=== PATIENT | female | born 1945 | race Caucasian/White ===

== ENCOUNTER 2018-01-01 11:43 | Observation (INO) | payer OTHER ==
[~2018-01-01] VITALS: Ht 152.4 cm; Wt 104.3 kg
[2018-01-01] MEDS ORDERED: KETOROLAC TROMETH 30 MG/ML 1ML VIAL IV ONE (12:15)
[2018-01-01 12:29] LABS: Urine Bacteria None Seen /hpf (None Seen)
[2018-01-01 12:33] LABS: Urine Specific Gravity 1.007 (1.001-1.035)
[2018-01-01 12:34] LABS: Urine Blood Negative /uL (Negative); Urine WBC 1 /hpf (0 - 5)
[2018-01-01 13:09] LABS: Basophils # (auto) 0.1 uL; Basophils % (auto) 0.9 % (0.0-2.0); Eosinophils # (auto) 0.1 uL; Eosinophils % (auto) 1.8 % (0.0-7.0); Hematocrit 44.2 % (36.0-46.0); Hemoglobin 14.7 g/dL (12.2-16.2); Lymphocytes # (auto) 1.6 uL; Lymphocytes % (auto) 21.6 % (10.0-50.0); Mean Corpuscular Hemoglobin 30.7 pg (28.0-32.0); Mean Corpuscular Hgb Conc. 33.2 g/dL (32.0-36.0); Mean Corpuscular Volume 92.6 fL (80.0-100.0); Monocytes # (auto) 0.8 uL; Neutrophils # (auto) 4.7 uL; Neutrophils % (auto) 64.7 % (37.0-80.0); Nucleated Red Blood Cells % 0.1 %; Platelet Count (auto) 296 10^3/uL (140-450); Red Blood Cells 4.78 10^6/uL (4.0-5.20); Red Cell Distribution Width 14.3 % (11.8-14.3); White Blood Cell 7.2 10^3/uL (4.4-10.8)
[2018-01-01 13:20] LABS: INR 0.97 (0.9-1.15); Partial Thromboplastin Time 27.8 sec (23.78-33.04); Prothrombin Time 10.4 sec (9.27-12.13)
[2018-01-01 13:29] LABS: Albumin 3.6 g/dL (3.4-5.0); BUN/Creatinine Ratio 10.2; Calcium 8.9 mg/dL (8.5-10.1); Magnesium 2.4 mg/dL (1.6-2.6); Potassium 4.1 mmol/L (3.5-5.1)
[2018-01-01 13:32] LABS: Bilirubin, Total 0.4 mg/dL (0.2-1.0); Total Protein 7.6 g/dL (6.4-8.2)
[2018-01-01 15:58] VITALS: BP 159/83
== END 2018-01-01 16:07 | disposition home or self-care (01) | DRG 392 ==
LOC: ER 11:43 → OVERFLOW 11:44 → ER 16:06
PROVIDERS: ADMIT Family Medicine; ATTEND Family Medicine
DX: R10.32 Left lower quadrant pain (principal); M47.816 Spondylosis without myelopathy or radiculopathy, lumbar region; N20.0 Calculus of kidney; Z82.49 Family history of ischemic heart disease and other diseases of the circulatory system
CPT/HCPCS: 36415; 71045; 74176; 80053; 81001; 82150; 83690; 83735; 85025; 85610; 85730; 96374; 99285; G0378; J1885

== ENCOUNTER 2018-04-04 10:43 | Emergency (ER) | payer OTHER ==
[~2018-04-04] VITALS: Ht 152.4 cm; Wt 99.8 kg
[2018-04-04] MEDS ORDERED: ASPirin 81 mg TAB PO ONE (11:00)
[2018-04-04 11:59] LABS: Hematocrit 41.6 % (36.0-46.0); Hemoglobin 14.1 g/dL (12.2-16.2); Mean Corpuscular Hemoglobin 30.6 pg (28.0-32.0); Mean Corpuscular Hgb Conc. 33.9 g/dL (32.0-36.0); Mean Corpuscular Volume 90.2 fL (80.0-100.0); Platelet Count (auto) 228 10^3/uL (140-450); Red Blood Cells 4.61 10^6/uL (4.0-5.20); Red Cell Distribution Width 14.7 % (11.8-14.3); White Blood Cell 8.4 10^3/uL (4.4-10.8)
[2018-04-04 12:07] LABS: Basophils % (manual) 0 (0.0-2.0); Blast Cells 0; Metamyelocytes % 0; Myelocytes % 0; Promyelocytes % 0; Reactive Lymphocytes 0
[2018-04-04 12:18] LABS: Albumin 3.6 g/dL (3.4-5.0); Anion Gap 8 (5-15); Blood Urea Nitrogen 16 mg/dL (7-18); Calcium 9.3 mg/dL (8.5-10.1); Carbon Dioxide 25 mmol/L (21-32); Chloride 104 mmol/L (98-107); Glucose 97 mg/dL (74-106); Magnesium 2.1 mg/dL (1.6-2.6); Potassium 3.9 mmol/L (3.5-5.1); Sodium 137 mmol/L (136-145)
[2018-04-04 12:25] LABS: Alanine Aminotransferase 82 U/L (13-56); Alkaline Phosphatase 692 U/L (45-117); Aspartate Aminotransferase 71 U/L (15-37); BUN/Creatinine Ratio 15.2; Bilirubin, Total 0.6 mg/dL (0.2-1.0); GFR Non-African American 54 mL/min; Total Protein 7.8 g/dL (6.4-8.2)
[2018-04-04 12:28] LABS: GFR African American > 60 mL/min
[2018-04-04 12:54] LABS: Band Neutrophils % (manual) 3; Eosinophils % (manual) 3 (0-7); Lymphocytes % (manual) 33 (10.0-50.0); Monocytes % (manual) 7 (0-12)
[2018-04-04] MEDS ORDERED: KETOROLAC TROMETH 60MG/2ML VIAL IM ONE (13:00)
[2018-04-04 13:05] VITALS: BP 150/82
== END 2018-04-04 13:26 | disposition home or self-care (01) ==
LOC: ER 10:43
DX: R07.89 Other chest pain (principal); E78.00 Pure hypercholesterolemia, unspecified; Z90.710 Acquired absence of both cervix and uterus; Z88.2 Allergy status to sulfonamides
CPT/HCPCS: 36415; 71046; 80053; 83735; 84484; 85007; 85027; 93005; 96372; 99284; J1885

== ENCOUNTER 2018-06-04 09:56 | Inpatient (IN) | payer OTHER | END 2018-06-07 15:01 | disposition home or self-care (01) | LOC: ER 09:56 → OVERFLOW 14:54 → WEST WING 18:54 | PROC: 0FT44ZZ Resection of Gallbladder, Percutaneous Endoscopic Approach (ICD-10-PCS; principal; 2018-06-05 07:22) | DX: K81.0 Acute cholecystitis (principal); K80.00 Calculus of gallbladder with acute cholecystitis without obstruction; E86.0 Dehydration; E78.5 Hyperlipidemia, unspecified; R79.89 Other specified abnormal findings of blood chemistry; Z82.49 Family history of ischemic heart disease and other diseases of the circulatory system; I10 Essential (primary) hypertension ==

== ENCOUNTER 2018-06-09 11:25 | Inpatient (IN) | payer OTHER | END 2018-06-20 18:46 | disposition home or self-care (01) | LOC: WEST WING 06-19 15:28 → ER 11:25 → WEST WING 06-12 13:17 → TELE 14:43 → TELE-WESTW 06-10 17:22 | PROC: 0DB78ZX Excision of Stomach, Pylorus, Via Natural or Artificial Opening Endoscopic, Diagnostic (ICD-10-PCS; principal; 2018-06-12 09:16) | DX: K29.70 Gastritis, unspecified, without bleeding (principal); N39.0 Urinary tract infection, site not specified; C79.51 Secondary malignant neoplasm of bone; Z68.41 Body mass index [BMI] 40.0-44.9, adult; E66.01 Morbid (severe) obesity due to excess calories; E78.5 Hyperlipidemia, unspecified; E86.0 Dehydration; D69.6 Thrombocytopenia, unspecified; Z90.49 Acquired absence of other specified parts of digestive tract; R79.89 Other specified abnormal findings of blood chemistry; K57.30 Diverticulosis of large intestine without perforation or abscess without bleeding; M89.9 Disorder of bone, unspecified; E66.9 Obesity, unspecified; Z68.29 Body mass index [BMI] 29.0-29.9, adult; C80.1 Malignant (primary) neoplasm, unspecified ==

== ENCOUNTER → 2018-07-29 | Outpatient (CLI) | payer OTHER ==
[~2018-07-29] MED LIST: CHOL20007 PO; DOCU-94 PO; HYDR-4798 PO; LETR2.5T PO; ONDA4TAB5 PO; PANT40TA2 PO; SIMV-13 PO; SUCR1TAB PO
[2018-07-29 15:17] LABS: BUN/Creatinine Ratio 12.7; Calcium 8.2 mg/dL (8.5-10.1); Magnesium 1.8 mg/dL (1.6-2.6); Potassium 3.9 mmol/L (3.5-5.1)
== END | disposition home or self-care (01) ==
LOC: LAB 14:33
PROVIDERS: ATTEND Internal Medicine
DX: C50.912 Malignant neoplasm of unspecified site of left female breast (principal); I50.32 Chronic diastolic (congestive) heart failure
CPT/HCPCS: 36415; 80048; 83735

== ENCOUNTER → 2018-09-02 | Outpatient (CLI) | payer OTHER ==
[2018-09-02 12:22] LABS: Hemoglobin 9.8 g/dL (12.2-16.2); Red Blood Cells 2.74 10^6/uL (4.0-5.20)
[2018-09-02 12:25] LABS: Hematocrit 29.1 % (36.0-46.0); Mean Corpuscular Hemoglobin 35.5 pg (28.0-32.0); Mean Corpuscular Hgb Conc. 33.5 g/dL (32.0-36.0); Platelet Count (auto) 359 10^3/uL (140-450); Red Cell Distribution Width 19.4 % (11.8-14.3)
[2018-09-02 13:19] LABS: White Blood Cell 1.8 10^3/uL (4.4-10.8)
[2018-09-02 13:20] LABS: Band Neutrophils % (manual) 0; Basophils % (manual) 0 (0.0-2.0); Blast Cells 0; Eosinophils % (manual) 0 (0-7); Metamyelocytes % 0; Myelocytes % 0; Promyelocytes % 0; Reactive Lymphocytes 0
[2018-09-02 13:29] LABS: Lymphocytes % (manual) 48 (10.0-50.0); Monocytes % (manual) 7 (0-12)
[2018-09-02 14:24] LABS: Albumin 3.7 g/dL (3.4-5.0); Calcium 8.8 mg/dL (8.5-10.1); Potassium 4.2 mmol/L (3.5-5.1)
[2018-09-02 14:29] LABS: BUN/Creatinine Ratio 8.2; Bilirubin, Total 0.5 mg/dL (0.2-1.0); Total Protein 7.5 g/dL (6.4-8.2)
== END | disposition home or self-care (01) ==
LOC: LAB 11:47
PROVIDERS: ATTEND Internal Medicine
DX: C50.912 Malignant neoplasm of unspecified site of left female breast (principal); C79.51 Secondary malignant neoplasm of bone
CPT/HCPCS: 36415; 80053; 83615; 85007; 85027; 86300

== ENCOUNTER → 2018-09-15 | Outpatient (CLI) | payer OTHER ==
[2018-09-15 14:04] LABS: Basophils # (auto) 0 uL; Eosinophils # (auto) 0 uL; Mean Corpuscular Hemoglobin 35.3 pg (28.0-32.0); Monocytes # (auto) 0.4 uL; Monocytes % (auto) 16.1 % (0.0-12.0); Neutrophils # (auto) 1.1 uL; Nucleated Red Blood Cells % 0.3 %; White Blood Cell 2.5 10^3/uL (4.4-10.8)
[2018-09-15 14:06] LABS: Basophils % (auto) 0.5 % (0.0-2.0); Eosinophils % (auto) 0.9 % (0.0-7.0); Hematocrit 27.1 % (36.0-46.0); Hemoglobin 9.1 g/dL (12.2-16.2); Lymphocytes % (auto) 39.8 % (10.0-50.0); Mean Corpuscular Hgb Conc. 33.4 g/dL (32.0-36.0); Mean Corpuscular Volume 105.7 fL (80.0-100.0); Neutrophils % (auto) 42.7 % (37.0-80.0); Platelet Count (auto) 350 10^3/uL (140-450); Red Blood Cells 2.56 10^6/uL (4.0-5.20); Red Cell Distribution Width 18.6 % (11.8-14.3)
[2018-09-15 14:55] LABS: Albumin 3.3 g/dL (3.4-5.0); Calcium 8.2 mg/dL (8.5-10.1); Potassium 3.8 mmol/L (3.5-5.1)
[2018-09-15 15:00] LABS: BUN/Creatinine Ratio 13.6; Bilirubin, Total 0.4 mg/dL (0.2-1.0); Total Protein 7.3 g/dL (6.4-8.2)
== END | disposition home or self-care (01) ==
LOC: LAB 13:39
PROVIDERS: ATTEND Internal Medicine
DX: C50.919 Malignant neoplasm of unspecified site of unspecified female breast (principal); C79.51 Secondary malignant neoplasm of bone; M54.5 Low back pain; L53.9 Erythematous condition, unspecified; J90 Pleural effusion, not elsewhere classified; E78.5 Hyperlipidemia, unspecified; I50.9 Heart failure, unspecified; D72.819 Decreased white blood cell count, unspecified
CPT/HCPCS: 36415; 80053; 83615; 85025; 86300

== ENCOUNTER → 2018-09-25 | Outpatient (CLI) | payer OTHER ==
[2018-09-25 13:11] LABS: Albumin 3.2 g/dL (3.4-5.0); Calcium 8.3 mg/dL (8.5-10.1)
[2018-09-25 13:20] LABS: BUN/Creatinine Ratio 10.2; Bilirubin, Total 0.3 mg/dL (0.2-1.0); Total Protein 7.4 g/dL (6.4-8.2)
== END | disposition home or self-care (01) ==
LOC: LAB 12:19
PROVIDERS: ATTEND Internal Medicine
DX: E03.9 Hypothyroidism, unspecified (principal)
CPT/HCPCS: 36415; 80053; 84439; 84443

== ENCOUNTER → 2018-10-15 | Outpatient (CLI) | payer OTHER ==
[~2018-10-15] MED LIST changes: +ONDA-144 PO; -ONDA4TAB5 PO
[2018-10-15 12:09] LABS: Basophils # (auto) 0 uL; Basophils % (auto) 1.2 % (0.0-2.0); Eosinophils # (auto) 0.5 uL; Eosinophils % (auto) 13.5 % (0.0-7.0); Hematocrit 31.8 % (36.0-46.0); Hemoglobin 10.6 g/dL (12.2-16.2); Lymphocytes # (auto) 0.8 uL; Lymphocytes % (auto) 21.9 % (10.0-50.0); Mean Corpuscular Hemoglobin 33.1 pg (28.0-32.0); Mean Corpuscular Hgb Conc. 33.3 g/dL (32.0-36.0); Mean Corpuscular Volume 99.4 fL (80.0-100.0); Monocytes # (auto) 0.4 uL; Monocytes % (auto) 11.1 % (0.0-12.0); Neutrophils # (auto) 1.9 uL; Neutrophils % (auto) 52.3 % (37.0-80.0); Nucleated Red Blood Cells % 0.1 %; Platelet Count (auto) 338 10^3/uL (140-450); Red Cell Distribution Width 18.4 % (11.8-14.3); White Blood Cell 3.6 10^3/uL (4.4-10.8)
[2018-10-15 13:02] LABS: Albumin 3.5 g/dL (3.4-5.0); Calcium 8.4 mg/dL (8.5-10.1); Potassium 4.1 mmol/L (3.5-5.1)
[2018-10-15 13:05] LABS: BUN/Creatinine Ratio 20.3; Bilirubin, Total 0.4 mg/dL (0.2-1.0); Total Protein 7.7 g/dL (6.4-8.2)
== END | disposition home or self-care (01) ==
LOC: LAB 11:53
PROVIDERS: ATTEND Internal Medicine
DX: C50.912 Malignant neoplasm of unspecified site of left female breast (principal); C79.51 Secondary malignant neoplasm of bone
CPT/HCPCS: 36415; 80053; 83615; 85025; 86300

== ENCOUNTER → 2018-12-05 | Outpatient (CLI) | payer OTHER ==
[2018-12-05 12:04] LABS: Hematocrit 32.7 % (36.0-46.0); Lymphocytes # (auto) 0.9 uL; Monocytes # (auto) 0.2 uL; Neutrophils # (auto) 1.3 uL; White Blood Cell 2.5 10^3/uL (4.4-10.8)
[2018-12-05 12:08] LABS: Basophils # (auto) 0.1 uL; Basophils % (auto) 2.5 % (0.0-2.0); Eosinophils # (auto) 0.1 uL; Eosinophils % (auto) 2.2 % (0.0-7.0); Lymphocytes % (auto) 34.9 % (10.0-50.0); Mean Corpuscular Hemoglobin 31.5 pg (28.0-32.0); Mean Corpuscular Hgb Conc. 33.5 g/dL (32.0-36.0); Mean Corpuscular Volume 93.8 fL (80.0-100.0); Monocytes % (auto) 9.2 % (0.0-12.0); Neutrophils % (auto) 51.2 % (37.0-80.0); Platelet Count (auto) 473 10^3/uL (140-450); Red Blood Cells 3.49 10^6/uL (4.0-5.20); Red Cell Distribution Width 19.5 % (11.8-14.3)
[2018-12-05 12:32] LABS: Albumin 3.5 g/dL (3.4-5.0); Calcium 8.1 mg/dL (8.5-10.1); Potassium 4.2 mmol/L (3.5-5.1)
[2018-12-05 12:36] LABS: BUN/Creatinine Ratio 14.9; Bilirubin, Total 0.4 mg/dL (0.2-1.0); Total Protein 7.7 g/dL (6.4-8.2)
== END | disposition home or self-care (01) ==
LOC: LAB 11:46
PROVIDERS: ATTEND Internal Medicine Hematology & Oncology
DX: C79.51 Secondary malignant neoplasm of bone (principal)
CPT/HCPCS: 36415; 80053; 83615; 85025; 86300

== ENCOUNTER → 2019-01-08 | Outpatient (CLI) | payer OTHER | END | disposition home or self-care (01) | LOC: XYW 10:44 | PROVIDERS: ATTEND Internal Medicine | DX: I10 Essential (primary) hypertension (principal); R07.9 Chest pain, unspecified | CPT/HCPCS: 93306 ==

== ENCOUNTER → 2019-01-20 | Outpatient (CLI) | payer OTHER ==
[~2019-01-20] VITALS: Ht 152.4 cm; Wt 77.1 kg
[~2019-01-20] MED LIST changes: +ADENOSINE 65 MG in GIVE UN-DILUTED 0 ML IV STA
[2019-01-20 09:55] VITALS: BP 139/56
== END | disposition home or self-care (01) ==
LOC: XY 08:25
PROVIDERS: ATTEND Internal Medicine
DX: C50.919 Malignant neoplasm of unspecified site of unspecified female breast (principal); I10 Essential (primary) hypertension; R07.9 Chest pain, unspecified; E78.5 Hyperlipidemia, unspecified; Z90.49 Acquired absence of other specified parts of digestive tract; Z90.710 Acquired absence of both cervix and uterus; Z88.2 Allergy status to sulfonamides
CPT/HCPCS: 78452; 93017; A9500; J0153

== ENCOUNTER → 2019-01-21 | Outpatient (CLI) | payer OTHER ==
[~2019-01-21] MED LIST changes: -ADENOSINE 65 MG in GIVE UN-DILUTED 0 ML IV STA
[2019-01-21 12:38] LABS: Basophils # (auto) 0 uL; Eosinophils # (auto) 0 uL; Eosinophils % (auto) 1.2 % (0.0-7.0); Hematocrit 35.2 % (36.0-46.0); Hemoglobin 11.8 g/dL (12.2-16.2); Lymphocytes # (auto) 0.9 uL; Lymphocytes % (auto) 36.6 % (10.0-50.0); Mean Corpuscular Hemoglobin 33.1 pg (28.0-32.0); Mean Corpuscular Hgb Conc. 33.5 g/dL (32.0-36.0); Mean Corpuscular Volume 98.9 fL (80.0-100.0); Monocytes # (auto) 0.3 uL; Monocytes % (auto) 11.5 % (0.0-12.0); Neutrophils # (auto) 1.2 uL; Neutrophils % (auto) 48.7 % (37.0-80.0); Nucleated Red Blood Cells % 0.1 %; Platelet Count (auto) 318 10^3/uL (140-450); Red Blood Cells 3.55 10^6/uL (4.0-5.20); White Blood Cell 2.5 10^3/uL (4.4-10.8)
[2019-01-21 12:39] LABS: Red Cell Distribution Width 20.9 % (11.8-14.3)
[2019-01-21 13:59] LABS: % Iron Saturation 23.2 % (15-50)
[2019-01-21 14:08] LABS: Ferritin 158.2 ng/mL (10-322)
[2019-01-21 14:10] LABS: Folate (Folic Acid) 19.23 ng/mL (5.38-24)
[2019-01-21 14:15] LABS: Albumin 3.6 g/dL (3.4-5.0); Calcium 8.1 mg/dL (8.5-10.1); Magnesium 2.8 mg/dL (1.6-2.6); Potassium 4.1 mmol/L (3.5-5.1)
[2019-01-21 14:18] LABS: BUN/Creatinine Ratio 23.4; Bilirubin, Total 0.3 mg/dL (0.2-1.0); Total Protein 7.9 g/dL (6.4-8.2)
== END | disposition home or self-care (01) ==
LOC: LAB 12:19
PROVIDERS: ATTEND Internal Medicine
DX: C50.912 Malignant neoplasm of unspecified site of left female breast (principal); I50.9 Heart failure, unspecified; E78.5 Hyperlipidemia, unspecified; J90 Pleural effusion, not elsewhere classified; Z85.3 Personal history of malignant neoplasm of breast; Z88.1 Allergy status to other antibiotic agents
CPT/HCPCS: 36415; 80053; 82607; 82728; 82746; 83540; 83550; 83735; 85025; 86300

== ENCOUNTER → 2019-02-11 | Outpatient (CLI) | payer OTHER ==
[2019-02-11 11:33] LABS: Basophils # (auto) 0.1 uL; Basophils % (auto) 2.2 % (0.0-2.0); Eosinophils # (auto) 0 uL; Eosinophils % (auto) 1.5 % (0.0-7.0); Hematocrit 35.3 % (36.0-46.0); Hemoglobin 11.9 g/dL (12.2-16.2); Lymphocytes # (auto) 0.8 uL; Lymphocytes % (auto) 33.4 % (10.0-50.0); Mean Corpuscular Hemoglobin 33.6 pg (28.0-32.0); Mean Corpuscular Hgb Conc. 33.8 g/dL (32.0-36.0); Mean Corpuscular Volume 99.5 fL (80.0-100.0); Monocytes # (auto) 0.3 uL; Monocytes % (auto) 14.4 % (0.0-12.0); Neutrophils # (auto) 1.1 uL; Neutrophils % (auto) 48.5 % (37.0-80.0); Platelet Count (auto) 378 10^3/uL (140-450); Red Blood Cells 3.55 10^6/uL (4.0-5.20); Red Cell Distribution Width 19.2 % (11.8-14.3); White Blood Cell 2.3 10^3/uL (4.4-10.8)
[2019-02-11 11:50] LABS: Albumin 3.9 g/dL (3.4-5.0); Calcium 8.2 mg/dL (8.5-10.1); Potassium 4.4 mmol/L (3.5-5.1)
[2019-02-11 11:53] LABS: BUN/Creatinine Ratio 16.7; Bilirubin, Total 0.3 mg/dL (0.2-1.0); Total Protein 8.6 g/dL (6.4-8.2)
== END | disposition home or self-care (01) ==
LOC: LAB 11:10
PROVIDERS: ATTEND Internal Medicine
DX: C50.912 Malignant neoplasm of unspecified site of left female breast (principal); C79.51 Secondary malignant neoplasm of bone
CPT/HCPCS: 36415; 80053; 83615; 85025; 86300

== ENCOUNTER → 2019-02-23 | Outpatient (CLI) | payer OTHER ==
[~2019-02-23] MED LIST changes: +ASPI-404 PO; +CALC-317 PO; +FURO40TA4 PO; +LEVO25TA6 PO; +POM PO; +POTA-220 PO
[2019-02-23 12:29] LABS: Basophils # (auto) 0 uL; Neutrophils # (auto) 2.4 uL; White Blood Cell 3.9 10^3/uL (4.4-10.8)
[2019-02-23 12:32] LABS: Basophils % (auto) 1.3 % (0.0-2.0); Eosinophils # (auto) 0.1 uL; Eosinophils % (auto) 1.3 % (0.0-7.0); Hematocrit 35.8 % (36.0-46.0); Hemoglobin 12.1 g/dL (12.2-16.2); Lymphocytes # (auto) 0.8 uL; Mean Corpuscular Hgb Conc. 33.8 g/dL (32.0-36.0); Mean Corpuscular Volume 100.4 fL (80.0-100.0); Monocytes # (auto) 0.6 uL; Monocytes % (auto) 15.2 % (0.0-12.0); Neutrophils % (auto) 61.2 % (37.0-80.0); Nucleated Red Blood Cells % 0.2 %; Platelet Count (auto) 416 10^3/uL (140-450); Red Blood Cells 3.56 10^6/uL (4.0-5.20); Red Cell Distribution Width 17.6 % (11.8-14.3)
[2019-02-23 12:36] LABS: INR 1.01 (0.9-1.15); Partial Thromboplastin Time 28.1 sec (23.64-32.05)
[2019-02-23 13:21] LABS: Albumin 3.6 g/dL (3.4-5.0); Calcium 8.5 mg/dL (8.5-10.1); Potassium 4.2 mmol/L (3.5-5.1)
[2019-02-23 13:25] LABS: BUN/Creatinine Ratio 13.6; Bilirubin, Total 0.3 mg/dL (0.2-1.0); Total Protein 8.3 g/dL (6.4-8.2)
== END | disposition home or self-care (01) ==
LOC: LAB 12:00
PROVIDERS: ATTEND Internal Medicine
DX: Z01.812 Encounter for preprocedural laboratory examination (principal); I50.32 Chronic diastolic (congestive) heart failure; I49.9 Cardiac arrhythmia, unspecified; R06.02 Shortness of breath
CPT/HCPCS: 36415; 80053; 85025; 85610; 85730

== ENCOUNTER 2019-02-27 08:05 | Day surgery (SDC) | payer OTHER ==
[~2019-02-27] VITALS: Ht 152.4 cm; Wt 81.6 kg
[~2019-02-27 08:05] MED LIST changes: -CHOL20007 PO; -ONDA-144 PO; -PANT40TA2 PO
[2019-02-27] MEDS ORDERED: ANGIOMAX 250 MG VIAL IV ONE (09:06)
[2019-02-27] MEDS ORDERED: LIDOCAINE 2%HCL (LOCAL ANESTH.) INJ 20ML MDV ONE (09:07)
[2019-02-27] MEDS ORDERED: fentaNYL CITRATE 100 MCG/2 ML VL ONE (09:07)
[2019-02-27] MEDS ORDERED: ATROPINE SULF 1 MG/10ml SYR ONE (09:07)
[2019-02-27] MEDS ORDERED: SODIUM CHL 0.9% 0 ML ONE (09:07)
[2019-02-27] MEDS ORDERED: MIDAZOLAM HCL 1MG/1ML-2 ML VIAL ONE (09:07)
[2019-02-27] MEDS ORDERED: IOHEXOL 350 MG/ML 100ML IJ ONE (09:09)
[2019-02-27] MEDS ORDERED: HEPARIN SODIUM (PORCINE) 5000 UNITS/ML 1ML VIAL ONE (09:22)
[2019-02-27] MEDS ORDERED: VERAPAMIL 2.5MG/ML INJ 2ML VIAL IV ONE (09:22)
== END 2019-02-27 12:57 | disposition home or self-care (01) ==
LOC: CATH 08:05
PROVIDERS: ATTEND Internal Medicine
DX: I25.10 Atherosclerotic heart disease of native coronary artery without angina pectoris (principal); I49.9 Cardiac arrhythmia, unspecified; I11.0 Hypertensive heart disease with heart failure; I50.9 Heart failure, unspecified; Z85.830 Personal history of malignant neoplasm of bone; Z79.899 Other long term (current) drug therapy; Z88.2 Allergy status to sulfonamides; Z79.82 Long term (current) use of aspirin
CPT/HCPCS: 93458; C1769; C1887; C1894; J1644; J2250; J3010; J7030; Q9967; 99152

== ENCOUNTER → 2019-03-24 | Outpatient (CLI) | payer OTHER ==
[2019-03-24 12:33] LABS: Basophils # (auto) 0.1 uL; Basophils % (auto) 2.4 % (0.0-2.0); Eosinophils # (auto) 0.1 uL; Monocytes # (auto) 0.5 uL; Neutrophils # (auto) 1.3 uL
[2019-03-24 12:39] LABS: Eosinophils % (auto) 2.5 % (0.0-7.0); Hematocrit 34.9 % (36.0-46.0); Hemoglobin 11.9 g/dL (12.2-16.2); Lymphocytes % (auto) 32.9 % (10.0-50.0); Mean Corpuscular Volume 102.8 fL (80.0-100.0); Neutrophils % (auto) 45.2 % (37.0-80.0); Nucleated Red Blood Cells % 0.4 %; Platelet Count (auto) 349 10^3/uL (140-450); Red Cell Distribution Width 16.7 % (11.8-14.3); White Blood Cell 2.9 10^3/uL (4.4-10.8)
[2019-03-24 12:48] LABS: Albumin 3.4 g/dL (3.4-5.0); Calcium 8.5 mg/dL (8.5-10.1); Potassium 4.4 mmol/L (3.5-5.1)
[2019-03-24 12:51] LABS: BUN/Creatinine Ratio 11.9; Bilirubin, Total 0.3 mg/dL (0.2-1.0); Total Protein 7.8 g/dL (6.4-8.2)
== END | disposition home or self-care (01) ==
LOC: LAB 11:34
PROVIDERS: ATTEND Internal Medicine
DX: E03.9 Hypothyroidism, unspecified (principal)
CPT/HCPCS: 36415; 80053; 83036; 83615; 84439; 84443; 85025; 86300

== ENCOUNTER → 2019-06-24 | Outpatient (CLI) | payer OTHER ==
[2019-06-24 10:56] LABS: Basophils # (auto) 0.1 10 ^3/uL (0-0.2); Eosinophils # (auto) 0 10 ^3/uL (0-0.8); Hemoglobin 12.1 g/dL (12.2-16.2); Lymphocytes # (auto) 0.6 10 ^3/uL (0.4-5.4); Monocytes # (auto) 0.2 10 ^3/uL (0-1.3); Neutrophils # (auto) 1.5 10 ^3/uL (1.6-8.6)
[2019-06-24 10:59] LABS: Basophils % (auto) 2.9 % (0.0-2.0); Eosinophils % (auto) 1.8 % (0.0-7.0); Hematocrit 35.8 % (36.0-46.0); Lymphocytes % (auto) 25.2 % (10.0-50.0); Mean Corpuscular Hemoglobin 34.8 pg (28.0-32.0); Mean Corpuscular Hgb Conc. 33.7 g/dL (32.0-36.0); Mean Corpuscular Volume 103.3 fL (80.0-100.0); Monocytes % (auto) 9.8 % (0.0-12.0); Neutrophils % (auto) 60.3 % (37.0-80.0); Nucleated Red Blood Cells % 0.2 %; Platelet Count (auto) 328 10^3/uL (140-450); Red Blood Cells 3.46 10^6/uL (4.0-5.20); Red Cell Distribution Width 15.6 % (11.8-14.3); White Blood Cell 2.5 10^3/uL (4.4-10.8)
[2019-06-24 11:43] LABS: Albumin 3.5 g/dL (3.4-5.0); Calcium 8.4 mg/dL (8.5-10.1); Potassium 4.6 mmol/L (3.5-5.1)
[2019-06-24 11:47] LABS: BUN/Creatinine Ratio 11.8; Bilirubin, Total 0.3 mg/dL (0.2-1.0); Total Protein 8.1 g/dL (6.4-8.2)
== END | disposition home or self-care (01) ==
LOC: LAB 10:29
PROVIDERS: ATTEND Internal Medicine
DX: C50.912 Malignant neoplasm of unspecified site of left female breast (principal); C79.51 Secondary malignant neoplasm of bone
CPT/HCPCS: 36415; 80053; 83615; 85025; 86300

== ENCOUNTER → 2019-10-06 | Outpatient (CLI) | payer OTHER ==
[~2019-10-06] MED LIST changes: -ASPI-404 PO; +ASPI-543 PO
[2019-10-06 16:02] LABS: Eosinophils # (auto) 0 10 ^3/uL (0-0.8); Hemoglobin 11.8 g/dL (12.2-16.2); Lymphocytes # (auto) 0.7 10 ^3/uL (0.4-5.4); Monocytes # (auto) 0.3 10 ^3/uL (0-1.3)
[2019-10-06 16:04] LABS: Basophils # (auto) 0 10 ^3/uL (0-0.2); Basophils % (auto) 1.8 % (0.0-2.0); Eosinophils % (auto) 1.6 % (0.0-7.0); Hematocrit 35.1 % (36.0-46.0); Lymphocytes % (auto) 33.9 % (10.0-50.0); Mean Corpuscular Hemoglobin 35.6 pg (28.0-32.0); Mean Corpuscular Hgb Conc. 33.5 g/dL (32.0-36.0); Mean Corpuscular Volume 106.3 fL (80.0-100.0); Monocytes % (auto) 13.4 % (0.0-12.0); Neutrophils # (auto) 1.1 10 ^3/uL (1.6-8.6); Neutrophils % (auto) 49.3 % (37.0-80.0); Nucleated Red Blood Cells % 0.2 %; Platelet Count (auto) 274 10^3/uL (140-450); Red Cell Distribution Width 16.4 % (11.8-14.3); White Blood Cell 2.2 10^3/uL (4.4-10.8)
[2019-10-06 16:21] LABS: Albumin 3.8 g/dL (3.4-5.0); Calcium 9.1 mg/dL (8.5-10.1); Potassium 4.5 mmol/L (3.5-5.1)
[2019-10-06 16:25] LABS: BUN/Creatinine Ratio 14.8; Bilirubin, Total 0.3 mg/dL (0.2-1.0); Total Protein 8.4 g/dL (6.4-8.2)
== END | disposition home or self-care (01) ==
LOC: LAB 15:42
PROVIDERS: ATTEND Internal Medicine
DX: C79.51 Secondary malignant neoplasm of bone (principal); C50.912 Malignant neoplasm of unspecified site of left female breast
CPT/HCPCS: 36415; 80053; 83615; 85025; 86300

== ENCOUNTER → 2019-12-08 | Outpatient (CLI) | payer OTHER ==
[2019-12-08 12:22] LABS: Potassium 4.1 mmol/L (3.5-5.1)
[2019-12-08 12:24] LABS: BUN/Creatinine Ratio 13.9
== END | disposition home or self-care (01) ==
LOC: LAB 11:40
PROVIDERS: ATTEND Internal Medicine
DX: Z01.812 Encounter for preprocedural laboratory examination (principal)
CPT/HCPCS: 36415; 80048

== ENCOUNTER → 2020-01-27 | Outpatient (CLI) | payer OTHER ==
[2020-01-27 13:24] LABS: Basophils # (auto) 0 10 ^3/uL (0-0.2); Eosinophils # (auto) 0 10 ^3/uL (0-0.8); Hemoglobin 11.4 g/dL (12.2-16.2); Lymphocytes # (auto) 0.8 10 ^3/uL (0.4-5.4); Monocytes # (auto) 0.3 10 ^3/uL (0-1.3); Red Blood Cells 3.11 10^6/uL (4.0-5.20); White Blood Cell 2.4 10^3/uL (4.4-10.8)
[2020-01-27 13:26] LABS: Basophils % (auto) 1.3 % (0.0-2.0); Hematocrit 33.3 % (36.0-46.0); Lymphocytes % (auto) 31.5 % (10.0-50.0); Mean Corpuscular Hemoglobin 36.6 pg (28.0-32.0); Mean Corpuscular Hgb Conc. 34.1 g/dL (32.0-36.0); Mean Corpuscular Volume 107.4 fL (80.0-100.0); Monocytes % (auto) 13.2 % (0.0-12.0); Neutrophils # (auto) 1.3 10 ^3/uL (1.6-8.6); Nucleated Red Blood Cells % 0.4 %; Platelet Count (auto) 286 10^3/uL (140-450); Red Cell Distribution Width 15.3 % (11.8-14.3)
[2020-01-27 13:58] LABS: Albumin 3.7 g/dL (3.4-5.0); Calcium 9.1 mg/dL (8.5-10.1); Potassium 4.4 mmol/L (3.5-5.1)
[2020-01-27 14:01] LABS: BUN/Creatinine Ratio 14.5; Bilirubin, Total 0.3 mg/dL (0.2-1.0); Total Protein 8.2 g/dL (6.4-8.2)
== END | disposition home or self-care (01) ==
LOC: LAB 12:50
PROVIDERS: ATTEND Internal Medicine
DX: C50.912 Malignant neoplasm of unspecified site of left female breast (principal); C79.51 Secondary malignant neoplasm of bone
CPT/HCPCS: 36415; 80053; 83615; 85025; 86300

== ENCOUNTER → 2020-03-22 | Outpatient (CLI) | payer OTHER ==
[2020-03-22 12:25] LABS: Basophils # (auto) 0 10 ^3/uL (0-0.2); Eosinophils # (auto) 0 10 ^3/uL (0-0.8); Lymphocytes # (auto) 0.7 10 ^3/uL (0.4-5.4); Neutrophils # (auto) 1.2 10 ^3/uL (1.6-8.6); Platelet Count (auto) 311 10^3/uL (140-450); White Blood Cell 2.2 10^3/uL (4.4-10.8)
[2020-03-22 12:27] LABS: Basophils % (auto) 1.4 % (0.0-2.0); Eosinophils % (auto) 1.1 % (0.0-7.0); Hematocrit 32.2 % (36.0-46.0); Hemoglobin 11.2 g/dL (12.2-16.2); Lymphocytes % (auto) 32.5 % (10.0-50.0); Mean Corpuscular Hemoglobin 37.2 pg (28.0-32.0); Mean Corpuscular Hgb Conc. 34.9 g/dL (32.0-36.0); Mean Corpuscular Volume 106.7 fL (80.0-100.0); Monocytes # (auto) 0.2 10 ^3/uL (0-1.3); Monocytes % (auto) 11.5 % (0.0-12.0); Neutrophils % (auto) 53.5 % (37.0-80.0); Red Blood Cells 3.02 10^6/uL (4.0-5.20); Red Cell Distribution Width 15.4 % (11.8-14.3)
[2020-03-22 13:12] LABS: Albumin 3.7 g/dL (3.4-5.0); Calcium 9.8 mg/dL (8.5-10.1); Potassium 4.1 mmol/L (3.5-5.1)
[2020-03-22 13:15] LABS: BUN/Creatinine Ratio 15.7; Bilirubin, Total 0.7 mg/dL (0.2-1.0); Total Protein 8.7 g/dL (6.4-8.2)
== END | disposition home or self-care (01) ==
LOC: LAB 12:11
PROVIDERS: ATTEND Internal Medicine
DX: C50.912 Malignant neoplasm of unspecified site of left female breast (principal); C79.51 Secondary malignant neoplasm of bone
CPT/HCPCS: 36415; 80053; 83615; 85025; 86300

== ENCOUNTER → 2020-05-16 | Outpatient (CLI) | payer OTHER ==
[2020-05-16 12:32] LABS: Hemoglobin 10.4 g/dL (12.2-16.2); Platelet Count (auto) 276 10^3/uL (140-450)
[2020-05-16 12:36] LABS: Hematocrit 29.7 % (36.0-46.0); Mean Corpuscular Hemoglobin 37.3 pg (28.0-32.0); Mean Corpuscular Hgb Conc. 35.1 g/dL (32.0-36.0); Mean Corpuscular Volume 106.3 fL (80.0-100.0); Red Blood Cells 2.79 10^6/uL (4.0-5.20); Red Cell Distribution Width 16.6 % (11.8-14.3)
[2020-05-16 12:42] LABS: Albumin 3.5 g/dL (3.4-5.0); Calcium 10.4 mg/dL (8.5-10.1); Potassium 4.1 mmol/L (3.5-5.1)
[2020-05-16 12:45] LABS: BUN/Creatinine Ratio 13.4; Bilirubin, Total 0.4 mg/dL (0.2-1.0); Total Protein 8.3 g/dL (6.4-8.2)
[2020-05-16 14:12] LABS: White Blood Cell 1.8 10^3/uL (4.4-10.8)
[2020-05-16 14:13] LABS: Band Neutrophils % (manual) 0; Basophils % (manual) 0 (0.0-2.0); Blast Cells 0; Metamyelocytes % 0; Myelocytes % 0; Promyelocytes % 0; Reactive Lymphocytes 0
[2020-05-16 14:22] LABS: Eosinophils % (manual) 2 (0-7); Lymphocytes % (manual) 80 (10.0-50.0); Monocytes % (manual) 2 (0-12)
== END | disposition home or self-care (01) ==
LOC: LAB 11:54
PROVIDERS: ATTEND Internal Medicine
DX: C50.912 Malignant neoplasm of unspecified site of left female breast (principal); C79.51 Secondary malignant neoplasm of bone; Z88.2 Allergy status to sulfonamides
CPT/HCPCS: 36415; 80053; 83615; 85007; 85027; 86300

== ENCOUNTER → 2020-08-23 | Outpatient (CLI) | payer OTHER | END | disposition home or self-care (01) | LOC: XY 09:00 | PROVIDERS: ATTEND Internal Medicine | DX: C79.51 Secondary malignant neoplasm of bone (principal); C50.919 Malignant neoplasm of unspecified site of unspecified female breast; E03.9 Hypothyroidism, unspecified; I10 Essential (primary) hypertension; J96.11 Chronic respiratory failure with hypoxia | CPT/HCPCS: 78306; A9503 ==

== ENCOUNTER 2020-10-07 09:14 | Inpatient (IN) | payer OTHER ==
[~2020-10-07] VITALS: Ht 152.4 cm; Wt 87.7 kg
[2020-10-07] VITALS (13 sets, daily range): BP systolic 111–144; BP diastolic 46–66
[2020-10-07] MEDS ORDERED: METOCLOPRAMIDE HCL 5MG/ml INJ 2ml VIAL IV PRN (09:30)
[2020-10-07] MEDS ORDERED: LORazepam 0.5 MG TAB PO PRN (09:30)
[2020-10-07] MEDS ORDERED: MORPHINE SULF INJ 2 MG/ML SYRINGE 1ML IV PRN (09:30)
[2020-10-07] MEDS ORDERED: NITROGLYCERIN 0.4 MG SL TAB SL PRN (09:30)
[2020-10-07] MEDS ORDERED: ACETAMINOPHEN 325 MG TAB PO PRN (09:30)
[2020-10-07] MEDS ORDERED: PANTOPRAZOLE 40 MG/10 ML VIAL INJ IV ONE (10:30)
[2020-10-07 10:43] LABS: % Iron Saturation 54.8 % (15-50)
[2020-10-07 11:00] LABS: INR 1.09 (0.9-1.15); Partial Thromboplastin Time 27.6 sec (23.0-31.2)
[2020-10-07] MEDS: HYDROcodone-ACET 5/325MG TAB PO PRN ×3 (13:06→22:23)
[2020-10-07] MEDS: SODIUM CHLOR 0.9% PF (SALINE LOCK) 10ML VIAL/SYR IV SCH ×2 (14:00→21:05)
[2020-10-07] MEDS ORDERED: FUROSEMIDE 20 MG/2 ML VIAL IV ONE (15:00)
[2020-10-07] MEDS: SUCRALFATE 1 GM/10 ML ORAL SUSP GT SCH (17:45)
[2020-10-07] MEDS: PANTOPRAZOLE 40 MG/10 ML VIAL INJ IV SCH (21:05)
[2020-10-07] MEDS: ATORVASTATIN 20 MG TAB PO SCH (21:06)
[2020-10-07 22:12] LABS: Hematocrit 19.8 % (36.0-46.0); Mean Corpuscular Hgb Conc. 35.6 g/dL (32.0-36.0); Mean Corpuscular Volume 101.1 fL (80.0-100.0); Red Blood Cells 1.95 10^6/uL (4.0-5.20)
[2020-10-07 22:43] LABS: Red Cell Distribution Width 27.8 % (11.8-14.3)
[2020-10-07 22:44] LABS: Hemoglobin 7.1 g/dL (12.2-16.2)
[2020-10-07 22:46] LABS: White Blood Cell 1.7 10^3/uL (4.4-10.8)
[2020-10-07 22:48] LABS: Basophils % (manual) 0 (0.0-2.0); Blast Cells 0; Promyelocytes % 0; Reactive Lymphocytes 0
[2020-10-07 22:54] LABS: Urine Bacteria NONE SEEN /hpf (None Seen); Urine Blood Negative /uL (Negative); Urine Hyaline Cast FEW /lpf (0 - 2); Urine Specific Gravity 1.008 (1.001-1.035); Urine WBC 1 /hpf (0 - 5)
[2020-10-07 23:23] LABS: Band Neutrophils % (manual) 1; Eosinophils % (manual) 4 (0-7); Lymphocytes % (manual) 48 (10.0-50.0); Metamyelocytes % 1; Monocytes % (manual) 8 (0-12); Myelocytes % 1
[2020-10-08] VITALS (9 sets, daily range): BP systolic 119–134; BP diastolic 46–59
[2020-10-08] MEDS: HYDROcodone-ACET 5/325MG TAB PO PRN ×5 (02:19→20:56)
[2020-10-08 05:21] LABS: Hematocrit 20.5 % (36.0-46.0)
[2020-10-08 05:25] LABS: Hemoglobin 7.1 g/dL (12.2-16.2); Mean Corpuscular Hemoglobin 35.4 pg (28.0-32.0); Mean Corpuscular Hgb Conc. 34.8 g/dL (32.0-36.0); Mean Corpuscular Volume 101.5 fL (80.0-100.0); Red Blood Cells 2.02 10^6/uL (4.0-5.20)
[2020-10-08 05:33] LABS: Red Cell Distribution Width 28.5 % (11.8-14.3)
[2020-10-08 05:34] LABS: White Blood Cell 1.8 10^3/uL (4.4-10.8)
[2020-10-08 05:36] LABS: Basophils % (manual) 0 (0.0-2.0); Blast Cells 0; Metamyelocytes % 0; Promyelocytes % 0
[2020-10-08] MEDS: SODIUM CHLOR 0.9% PF (SALINE LOCK) 10ML VIAL/SYR IV SCH ×3 (06:11→21:07)
[2020-10-08] MEDS: SUCRALFATE 1 GM/10 ML ORAL SUSP GT SCH ×3 (06:11→17:48)
[2020-10-08] MEDS: LEVOTHYROXINE SODIUM 50 MCG TAB PO SCH (06:12)
[2020-10-08] MEDS: PANTOPRAZOLE 40 MG/10 ML VIAL INJ IV SCH ×2 (09:22→21:06)
[2020-10-08] MEDS ORDERED: DOCUSATE SOD 100 MG CAP PO PRN (09:45)
[2020-10-08] MEDS ORDERED: PATIENTS OWN MEDICATION PO SCH (10:00)
[2020-10-08 11:05] LABS: Band Neutrophils % (manual) 3; Eosinophils % (manual) 1 (0-7); Lymphocytes % (manual) 46 (10.0-50.0); Monocytes % (manual) 4 (0-12); Myelocytes % 1; Reactive Lymphocytes 2
[2020-10-08] MEDS ORDERED: PALBOCICLIB 100 MG PO SCH (13:13)
[2020-10-08] MEDS: CALCIUM CARB 500 MG CHEW TAB PO PRN (13:40)
[2020-10-08] MEDS: ATORVASTATIN 20 MG TAB PO SCH (21:07)
[2020-10-08 21:17] LABS: Hemoglobin 8.4 g/dL (12.2-16.2)
[2020-10-08 21:19] LABS: Hematocrit 23.9 % (36.0-46.0); Mean Corpuscular Hemoglobin 34.7 pg (28.0-32.0); Red Blood Cells 2.42 10^6/uL (4.0-5.20)
[2020-10-08 21:36] LABS: Red Cell Distribution Width 24.8 % (11.8-14.3)
[2020-10-08 21:39] LABS: White Blood Cell 1.9 10^3/uL (4.4-10.8)
[2020-10-08 21:40] LABS: Band Neutrophils % (manual) 0; Basophils % (manual) 0 (0.0-2.0); Blast Cells 0; Myelocytes % 0; Promyelocytes % 0
[2020-10-08 23:49] LABS: Eosinophils % (manual) 1 (0-7); Lymphocytes % (manual) 51 (10.0-50.0); Metamyelocytes % 1; Monocytes % (manual) 5 (0-12); Reactive Lymphocytes 2
[2020-10-09] MEDS: HYDROcodone-ACET 5/325MG TAB PO PRN ×5 (01:18→21:14)
[2020-10-09 05:00] VITALS: BP 136/60
[2020-10-09 05:17] LABS: Hematocrit 24.1 % (36.0-46.0)
[2020-10-09 05:20] LABS: Hemoglobin 8.3 g/dL (12.2-16.2); Mean Corpuscular Hemoglobin 34.5 pg (28.0-32.0); Mean Corpuscular Hgb Conc. 34.4 g/dL (32.0-36.0); Mean Corpuscular Volume 100.3 fL (80.0-100.0)
[2020-10-09 05:30] LABS: Red Cell Distribution Width 25.3 % (11.8-14.3)
[2020-10-09] MEDS: SODIUM CHLOR 0.9% PF (SALINE LOCK) 10ML VIAL/SYR IV SCH ×3 (06:08→21:04)
[2020-10-09] MEDS: SUCRALFATE 1 GM/10 ML ORAL SUSP GT SCH ×3 (06:08→17:27)
[2020-10-09] MEDS: LEVOTHYROXINE SODIUM 50 MCG TAB PO SCH (06:09)
[2020-10-09 08:53] LABS: Basophils # (auto) 0 10 ^3/uL (0-0.2); Basophils % (auto) 1.5 % (0.0-2.0); Eosinophils # (auto) 0 10 ^3/uL (0-0.8); Eosinophils % (auto) 2.1 % (0.0-7.0); Lymphocytes % (auto) 49.8 % (10.0-50.0); Monocytes # (auto) 0.1 10 ^3/uL (0-1.3); Neutrophils # (auto) 0.8 10 ^3/uL (1.6-8.6); Neutrophils % (auto) 41.6 % (37.0-80.0)
[2020-10-09 09:00] VITALS: BP 135/44
[2020-10-09] MEDS: PANTOPRAZOLE 40 MG/10 ML VIAL INJ IV SCH ×2 (10:12→21:04)
[2020-10-09] MEDS: FILGRASTIM(TBO) 480 MCG/0.8 ML SYRG SC SCH (10:15)
[2020-10-09] MEDS ORDERED: IRON SUCROSE COMPLEX 200 MG in SODIUM CHL 0.9% 100 ML IV SCH (12:00)
[2020-10-09] MEDS: SODIUM FERR GLUC 125 MG in NS 100 ML IV SCH (12:00)
[2020-10-09 13:00] VITALS: BP 145/57
[2020-10-09] MEDS: MORPHINE SULF INJ 2 MG/ML SYRINGE 1ML IV PRN ×2 (14:18→19:43)
[2020-10-09 17:00] VITALS: BP 137/48
[2020-10-09] MEDS: CALCIUM CARB 500 MG CHEW TAB PO PRN (19:42)
[2020-10-09] MEDS: ATORVASTATIN 20 MG TAB PO SCH (21:04)
[2020-10-09 22:00] VITALS: BP 145/60
[2020-10-10] MEDS: HYDROcodone-ACET 5/325MG TAB PO PRN ×3 (01:57→14:53)
[2020-10-10 05:00] VITALS: BP 137/59
[2020-10-10] MEDS: SUCRALFATE 1 GM/10 ML ORAL SUSP GT SCH ×2 (06:08→11:55)
[2020-10-10] MEDS: LEVOTHYROXINE SODIUM 50 MCG TAB PO SCH (06:08)
[2020-10-10] MEDS: SODIUM CHLOR 0.9% PF (SALINE LOCK) 10ML VIAL/SYR IV SCH ×2 (06:08→13:59)
[2020-10-10] MEDS: MORPHINE SULF INJ 2 MG/ML SYRINGE 1ML IV PRN (08:11)
[2020-10-10 09:27] VITALS: BP 130/58
[2020-10-10] MEDS: PANTOPRAZOLE 40 MG/10 ML VIAL INJ IV SCH (09:57)
[2020-10-10] MEDS: FILGRASTIM(TBO) 480 MCG/0.8 ML SYRG SC SCH (09:59)
[2020-10-10 10:57] LABS: Basophils # (auto) 0 10 ^3/uL (0-0.2); Basophils % (auto) 0.9 % (0.0-2.0); Eosinophils # (auto) 0 10 ^3/uL (0-0.8); Eosinophils % (auto) 0.8 % (0.0-7.0); Hematocrit 25.4 % (36.0-46.0); Hemoglobin 8.5 g/dL (12.2-16.2); Lymphocytes # (auto) 0.7 10 ^3/uL (0.4-5.4); Lymphocytes % (auto) 21.4 % (10.0-50.0); Mean Corpuscular Hemoglobin 33.8 pg (28.0-32.0); Mean Corpuscular Hgb Conc. 33.6 g/dL (32.0-36.0); Mean Corpuscular Volume 100.6 fL (80.0-100.0); Monocytes # (auto) 0.1 10 ^3/uL (0-1.3); Monocytes % (auto) 4.2 % (0.0-12.0); Neutrophils # (auto) 2.2 10 ^3/uL (1.6-8.6); Neutrophils % (auto) 72.7 % (37.0-80.0); Nucleated Red Blood Cells % 2.4 %; Red Blood Cells 2.52 10^6/uL (4.0-5.20); White Blood Cell 3.1 10^3/uL (4.4-10.8)
[2020-10-10 11:09] LABS: Red Cell Distribution Width 24.6 % (11.8-14.3)
[2020-10-10 13:00] VITALS: BP 139/65
[2020-10-10 14:34] VITALS: BP 139/65
[2020-10-10 16:43] VITALS: BP 139/65
[2020-10-10 17:07] VITALS: BP 137/59
== END 2020-10-10 18:35 | disposition home health service (06) | DRG 809 ==
LOC: CENTRAL 09:43 → TELE-CENTR 20:40
PROVIDERS: ADMIT Internal Medicine; ATTEND Internal Medicine
PROC: 30233N1 Transfusion of Nonautologous Red Blood Cells into Peripheral Vein, Percutaneous Approach (ICD-10-PCS; principal; 2020-10-07)
DX: D61.818 Other pancytopenia (principal); J96.10 Chronic respiratory failure, unspecified whether with hypoxia or hypercapnia; I50.32 Chronic diastolic (congestive) heart failure; C79.51 Secondary malignant neoplasm of bone; C79.31 Secondary malignant neoplasm of brain; I13.0 Hypertensive heart and chronic kidney disease with heart failure and stage 1 through stage 4 chronic kidney disease, or unspecified chronic kidney disease; C50.919 Malignant neoplasm of unspecified site of unspecified female breast; L89.92 Pressure ulcer of unspecified site, stage 2; E03.9 Hypothyroidism, unspecified; Z20.822 Contact with and (suspected) exposure to COVID-19; D75.89 Other specified diseases of blood and blood-forming organs; G47.30 Sleep apnea, unspecified; M19.90 Unspecified osteoarthritis, unspecified site; D63.1 Anemia in chronic kidney disease; N18.30 Chronic kidney disease, stage 3 unspecified; J44.9 Chronic obstructive pulmonary disease, unspecified; Z80.1 Family history of malignant neoplasm of trachea, bronchus and lung; Z80.8 Family history of malignant neoplasm of other organs or systems; Z81.8 Family history of other mental and behavioral disorders; Z82.49 Family history of ischemic heart disease and other diseases of the circulatory system; Z85.3 Personal history of malignant neoplasm of breast; Z90.710 Acquired absence of both cervix and uterus; Z92.3 Personal history of irradiation; Z79.899 Other long term (current) drug therapy; Z88.2 Allergy status to sulfonamides
CPT/HCPCS: 36415; 71045; 71250; 74176; 81001; 82270; 82378; 82728; 83540; 83550; 85007; 85025; 85027; 85610; 85730; 86850; 86900; 86901; 86920; 87426; 93306; C9113; G0378; J1447; J1756

== ENCOUNTER → 2020-10-07 | Outpatient (CLI) | payer OTHER ==
[2020-10-07 07:50] LABS: Basophils # (auto) 0 10 ^3/uL (0-0.2); Basophils % (auto) 1.6 % (0.0-2.0); Eosinophils # (auto) 0 10 ^3/uL (0-0.8); Eosinophils % (auto) 1.6 % (0.0-7.0); Hematocrit 14.2 % (36.0-46.0); Lymphocytes % (auto) 50.9 % (10.0-50.0); Mean Corpuscular Hemoglobin 40.1 pg (28.0-32.0); Mean Corpuscular Hgb Conc. 35.7 g/dL (32.0-36.0); Mean Corpuscular Volume 112.2 fL (80.0-100.0); Monocytes # (auto) 0.1 10 ^3/uL (0-1.3); Monocytes % (auto) 5.9 % (0.0-12.0); Neutrophils # (auto) 0.8 10 ^3/uL (1.6-8.6); Nucleated Red Blood Cells % 0.9 %; Red Blood Cells 1.26 10^6/uL (4.0-5.20); White Blood Cell 2.1 10^3/uL (4.4-10.8)
[2020-10-07 08:13] LABS: Albumin 2.9 g/dL (3.4-5.0); BUN/Creatinine Ratio 16.2; Hemoglobin 5.1 g/dL (12.2-16.2); Red Cell Distribution Width 20.8 % (11.8-14.3)
[2020-10-07 08:16] LABS: Bilirubin, Total 0.3 mg/dL (0.2-1.0); Total Protein 7.4 g/dL (6.4-8.2)
[2020-10-07 08:24] LABS: Thyroid Stimulating Hormone 4.7 uIU/mL (0.358-3.74)
[2020-10-07 10:03] LABS: Folate (Folic Acid) > 24.00 ng/mL (5.38-24)
== END | disposition home or self-care (01) ==
LOC: LAB 07:35
PROVIDERS: ATTEND Internal Medicine
DX: E03.9 Hypothyroidism, unspecified (principal)
CPT/HCPCS: 36415; 80053; 82607; 82746; 83615; 84439; 84443; 85025; 85045

== ENCOUNTER → 2020-10-27 | Outpatient (CLI) | payer OTHER ==
[~2020-10-27] MED LIST changes: -ASPI-543 PO
[2020-10-27 16:01] LABS: Albumin 2.9 g/dL (3.4-5.0); BUN/Creatinine Ratio 14.3; Calcium 10.9 mg/dL (8.5-10.1); Potassium 3.8 mmol/L (3.5-5.1)
[2020-10-27 16:04] LABS: Bilirubin, Total 0.8 mg/dL (0.2-1.0)
== END | disposition home or self-care (01) ==
LOC: LAB 15:23
PROVIDERS: ATTEND Internal Medicine
DX: C50.912 Malignant neoplasm of unspecified site of left female breast (principal); C79.51 Secondary malignant neoplasm of bone
CPT/HCPCS: 36415; 80053; 83615; 86300